=== PATIENT | male | born 1985 ===

== ENCOUNTER 2017-06-01 12:29 | Emergency (ER) | payer OTHER ==
[2017-06-01 12:30] VITALS: BMI 31.8
[2017-06-01 12:57] VITALS: RESP 18; O2SAT 98
--- NOTE | 2017-06-01 13:45 | ED PDOC ---
HPI: Abdomen Time Seen by Provider: 06/01/17 13:43 Chief Complaint (Nursing): Abdominal Pain Chief Complaint (Provider): ABDOMINAL PAIN/DIZZINESS History Per: Patient (32 Y/O MALE HERE FOR ABDOMINAL PAIN DESCRIBED EPIGASTRIC RADIATING TO THROAT BURNING X 3 DAYS. NOTES ADDITIONAL ONGOING SYMPTOMS OF DIZZINESS ROOM SPINNING. NOTES PALPITATIONS AND INSOMNIA WELL. WAS SEEN BY PMD AND GIVEN XANAX AND MECLIZINE WITHOUT RELIEF. STATES HE HAS USED WEIGHT LOSS PILLS LAST YEAR BUT HAS NOT USED SINCE. NOTES DIZZINESS WORSE AFTER ALCOHOL INTAKE AND HAS STOPPED ALCOHOL INTAKE IN MARCH.) Past Medical History Reviewed: Historical Data, Nursing Documentation, Vital Signs Vital Signs: Last Vital Signs Temp 98.9 F 06/01/17 12:55 Pulse 91 H 06/01/17 12:55 Resp 18 06/01/17 12:55 BP 126/83 06/01/17 12:55 Pulse Ox 98 06/01/17 14:48 - Medical History PMH: Anxiety, Hyperlipidemia Denies: Chronic Kidney Disease - Family History Family History: States: Unknown Family Hx - Immunization History Hx Tetanus Toxoid Vaccination: No Hx Influenza Vaccination: No Hx Pneumococcal Vaccination: No - Home Medications Home Medications: Ambulatory Orders Medication Instructions Recorded Atorvastatin [Lipitor] 40 mg PO DAILY 05/24/17 Meclizine [Antivert] 2 tab PO Q6 PRN #24 tab 06/01/17 Omeprazole Magnesium [Prilosec Otc] 20 mg PO DAILY #15 tablet. 06/01/17 Ranitidine HCl [Zantac 75] 75 mg PO BID #10 tablet 06/01/17 - Allergies Allergies/Adverse Reactions: Allergies Allergy/AdvReac Type Severity Reaction Status Date / Time No Known Allergies Allergy Verified 05/27/17 20:28 Review of Systems ROS Statement: Except As Marked, All Systems Reviewed And Found Negative Physical Exam - Reviewed Nursing Documentation Reviewed: Yes Vital Signs Reviewed: Yes - Physical Exam Appears: Positive for: Well, Non-toxic, No Acute Distress Head Exam: Positive for: ATRAUMATIC, NORMAL INSPECTION, NORMOCEPHALIC Skin: Positive for: Normal Color, Warm, DRY Eye Exam: Positive for: Normal appearance, EOMI, PERRL, Nystagmus ENT: Positive for: Normal ENT Inspection Neck: Positive for: Normal, Painless ROM Cardiovascular/Chest: Positive for: Regular Rate, Rhythm Respiratory: Positive for: CNT, Normal Breath Sounds Gastrointestinal/Abdominal: Positive for: Normal Exam, Bowel Sounds, Soft, Tenderness (EPIGASTRIC TENDERNESS) Back: Positive for: Normal Inspection Extremity: Positive for: Normal ROM Neurologic/Psych: Positive for: Alert, Oriented - Laboratory Results Result Diagrams: 06/01/17 13:50 06/01/17 13:50 - ECG O2 Sat by Pulse Oximetry: 98 - Progress ED Course And Treament: REGLAN 10 MG IV X 1 DOSE PEPCID 20 MG IV X 1 DOSE NS 1 LITER WIDE OPEN EKG: SINUS BRADYCARDIA 57 BPM NO ECTOPY NO ACUTE CHANGES on re-evaluation, patient feels improved. Disposition - Clinical Impression Clinical Impression: Vertigo, Abdominal pain - Patient ED Disposition Is Patient to be Admitted: No - Disposition Referrals: [facility] [place] [Outside] Disposition: Routine/Home Disposition Time: 15:58 Condition: FAIR Prescriptions: Meclizine [Antivert] 2 tab PO Q6 PRN #24 tab PRN Reason: Dizziness Omeprazole Magnesium [Prilosec Otc] 20 mg PO DAILY #15 tablet. Ranitidine HCl [Zantac 75] 75 mg PO BID #10 tablet Instructions: Vertigo (ED), Gastritis (DC), Diet for Ulcers and Gastritis (ED) Forms: [facility] ([place]), [facility] ED School/Work Excuse Print Language: ICELANDIC
[2017-06-01] MEDS: Sodium Chloride 0.9% 1,000 ML IV STA (13:58)
[2017-06-01 13:59] LABS: BASO # 0.1 K/uL (0.0-0.2); EOS # 0.1 K/uL (0.0-0.7); EOS % 0.8 % (0.0-4.0); HEMOGLOBIN 16.4 g/dL (12.0-18.0); LYMPH # 2.7 K/uL (1.0-4.3); LYMPH % 29.9 % (20.0-40.0); MEAN CELL VOLUME 87.4 fl (80.0-94.0); MEAN CORPUSCULAR HEMOGLOBIN 30.6 pg (27.0-31.0); MEAN PLATELET VOLUME 9.9 fl (7.2-11.7); MONO # 0.5 K/uL (0.0-0.8); MONO % 5.8 % (0.0-10.0); NEUT # 5.6 K/uL (1.8-7.0); NEUT % 62.5 % (50.0-75.0); NRBC % 0.1 % (0.0-0.0); RBC 5.38 Mil/uL (4.40-5.90); RED CELL DISTRIBUTION WIDTH 12.9 % (11.5-14.5)
[2017-06-01 14:09] LABS: ALB/GLOB RATIO 1.6 (1.0-2.1); ALBUMIN 4.9 g/dL (3.5-5.0); ALT/SGPT 85 U/L (21-72); AST/SGOT 34 U/L (17-59); BLOOD UREA NITROGEN 12 mg/dl (9-20); CALCIUM 9.9 mg/dL (8.4-10.2); GFR AFRICAN-AMERICAN > 60; GFR NON-AFRICAN AMERICAN > 60; LIPASE 143 U/L (23-300); MAGNESIUM 2.4 MG/DL (1.6-2.3)
--- NOTE | 2017-06-01 15:16 | RAD ---
HISTORY: ROUTINE COMPARISON: No prior. TECHNIQUE: Chest PA and lateral FINDINGS: LUNGS: No active pulmonary disease. PLEURA: No significant pleural effusion identified. No pneumothorax apparent. CARDIOVASCULAR: Normal. OSSEOUS STRUCTURES: No significant abnormalities. VISUALIZED UPPER ABDOMEN: Normal. OTHER FINDINGS: None. IMPRESSION: No active disease.
[2017-06-01 16:19] VITALS: BP 128/78; PULSE 80; TEMP 98
--- NOTE | 2017-06-02 08:41 | CARD ---
APPROVED REPORT EKG Measurement Heart [id number] <Conclusion> Normal sinus rhythm Normal ECG
== END 2017-06-01 16:19 | disposition home or self-care (01) ==
LOC: H.ER 12:29
DX: R10.13 Epigastric pain (principal); R00.2 Palpitations; F41.9 Anxiety disorder, unspecified; E78.5 Hyperlipidemia, unspecified
CPT/HCPCS: 71046; 80053; 83690; 83735; 84484; 85025; 93005; 96374; 96375; 99282; J2765; J7040